=== PATIENT | male | born 1945 | race Caucasian/White ===

== ENCOUNTER 2022-08-25 14:51 | Emergency (ER) | payer OTHER, SELFPAY ==
[2022-08-25 15:03] VITALS: BP 153/77; RESP 18; TEMP 37.4; O2SAT 98; BMI 23.1
--- NOTE | 2022-08-25 15:24 | ED_ITS ---
HPI - General Adult General Chief complaint: Cough Stated complaint: Really bad cough, Trouble breathing Time Seen by Provider: 08/25/22 15:14 History of Present Illness HPI narrative: This 76-year-old male comes in with persistent dry cough that began yesterday. He states that it is worse when laying down. He had an episode of coughing where he thought he was not able to catch his breath. This was relieved when sitting upright. He does not report any fever, sore throat, or nasal congestion. He does not report shortness of breath otherwise. Related Data Previous Rx's Medication Instructions Recorded acetaminophen 300 mg-codeine 30 mg 1 tab PO Q6H PRN pain #20 tabs 08/25/22 tablet oseltamivir 75 mg capsule (Tamiflu) 75 mg PO BID 5 days #10 caps 08/25/22 Allergies Allergy/AdvReac Type Severity Reaction Status Date / Time No Known Drug Allergies Allergy Verified 08/25/22 15:07 Review of Systems Status of ROS: Reports: 10 or more systems reviewed and unremarkable except as noted in History and below Narrative: Constitutional: No fevers, no weight gain or loss. Eyes: No discharge. No vision changes. HENT: No congestion, no sore throat, no ear pain. Cardiovascular: No chest pain, no palpitations. Respiratory: No shortness of breath, no wheezes. Persistent dry cough. Gastrointestinal: No abdominal pain, no vomiting, no diarrhea. Genitourinary: No dysuria, no hematuria. Musculoskeletal: Normal range of motion. Skin: No rashes, no pruritis. Neurological: No dizziness, weakness, sensory change, speech change. Endo/Heme/Allergies: No bruising or bleeding. No polydipsia. Pysch: no suicidality, no anxiety, no insomnia. All other systems reviewed and are negative. PFSH PFS Social History Smoking Status: Never smoker Do you use any of these nicotine containing products: None How often do you have a drink containing alcohol: never AUDIT-C Alcohol total score: 0 Non-prescribed substance use: denies use Exam Narrative: Exam Narrative: Constitutional: Well-developed, well-nourished, no acute distress. HEENT: Normocephalic, atraumatic. Neck: Normal range of motion. Nontender. Supple. Heart: Regular. No murmurs. Normal rate. Intact distal pulses. Lungs: Clear to auscultation. No chest discomfort. No wheezes, rhonchi, or rales. Abdomen: Normal bowel sounds. Nontender. No rebound tenderness. Genitalia: Deferred. Back: No midline tenderness. Normal range of motion. Extremities: Normal range of motion. No injury. Skin: Intact. No rash. Warm. No erythema or pallor. Neurologic: No altered sensation. No weakness. Alert and oriented. Psychiatric: No suicidality. No anxiety or depression. No insomnia. Nursing notes and vitals signs are reviewed. Const: Vital Signs, click to edit/add: Vital Signs - 24 hr 08/25/22 15:03 Temperature 99.3 F Respiratory Rate 18 [facility] 153/77 H Pulse Oximetry 98 Oxygen Delivery Me thod Room Air Course Vital Signs Vital signs: Initial Vital Signs Temperature 99.3 F 08/25/22 15:03 Temperature Source Temporal Artery Scan 08/25/22 15:03 Respiratory Rate 18 08/25/22 15:03 Blood Pressure 153/77 H 08/25/22 15:03 Blood Pressure Mean 102 08/25/22 15:03 Blood Pressure Position Sitting 08/25/22 15:03 Pulse Oximetry 98 08/25/22 15:03 Oxygen Delivery Method 08/25/22 15:03 Vital Signs Temperature 99.3 F 08/25/22 15:03 Respiratory Rate 18 08/25/22 15:03 Blood Pressure 153/77 H 08/25/22 15:03 Pulse Oximetry 98 08/25/22 15:03 Oxygen Delivery Method 08/25/22 15:03 Temperature 99.3 F 08/25/22 15:03 Respiratory Rate 18 08/25/22 15:03 Blood Pressure 153/77 H 08/25/22 15:03 Pulse Oximetry 98 08/25/22 15:03 Oxygen Delivery Method 08/25/22 15:03 Medical Decision Making MDM Narrative Medical decision making narrative: This patient comes in with upper respiratory symptoms as described above. Testing for COVID, influenza, and RSV returned positive for influenza A. He is okay to be discharged home and received prescriptions for Tamiflu and Tylenol 3. Lab Data Labs: Lab Results 08/25/22 Range/Units 15:25 SARS-CoV-2 (PCR) Negative SARS-CoV-2 (Negative) Influenza Type A (PCR) POSITIVE PCR FLU A A (Negative) Influenza Type B (PCR) Negative PCR FLU B (Negative) RSV (PCR) Negative PCR RSV (Negative) Discharge Plan Discharge Clinical Impression: Influenza A Patient Disposition: Home, Self-Care Condition: Stable Additional Instructions: Take medication as needed and indicated. Follow up with MD or return if worsening. Prescriptions: New acetaminophen-codeine 300-30 mg tablet 1 tab PO Q6H PRN (Reason: pain) Qty: 20 0RF oseltamivir [Tamiflu] 75 mg capsule 75 mg PO BID 5 Days Qty: 10 0RF Follow Up/Referrals: Russ Thomas MD [Primary Care Provider] - Stand Alone Forms: [employer] Info Instructions
[2022-08-25 16:10] LABS: PCR FLU A POSITIVE PCR FLU A (Negative); PCR FLU B Negative PCR FLU B (Negative); PCR RSV Negative PCR RSV (Negative)
[2022-08-25 16:13] LABS: SARS PCR* Negative SARS-CoV-2 (Negative)
== END 2022-08-25 16:30 | disposition home or self-care (01) ==
PROVIDERS: Emergency Provider Emergency Medicine Emergency Medical Services; PCP Family Medicine
DX: J10.1 Influenza due to other identified influenza virus with other respiratory manifestations (principal)
CPT/HCPCS: 87502; 87634; 87635; 99283; 99284

== ENCOUNTER 2023-06-08 17:11 | Emergency (ER) | payer MEDICARE, OTHER, SELFPAY ==
[2023-06-08 17:15] VITALS: BP 110/67; PULSE 81; RESP 16; TEMP 36.4; O2SAT 96; BMI 20.5
--- NOTE | 2023-06-08 18:00 | ED.GENADULT ---
HPI - General Adult General Chief complaint: Shortness of Breath/Dyspnea Stated complaint: shortness of breath Time Seen by Provider: 06/08/23 17:37 History of Present Illness HPI narrative: tightness in chest for a couple days. c /o sob also for a couple days. daughter states says its been going on for awhile. pt said it was worse today, couldn't sit, stand or lay. 77-year-old man presenting to the emergency department complaint of shortness of breath. Further question reveals that this has been going on for months maybe even longer including some chest tightness this may be accompanied by shortness of breath maybe even some lightheadedness. Further questioning with spouse and daughter who accompanied here today reveals that with distraction or with a fan blowing in his face seems to help. Information is is frankly little difficult to obtain from [facility]. Little hard of hearing a little distracted and I think forgetful. It is not clearly orthostatic. Independent of exertion. Will occur for various amounts of time numerous times over the course of the day. Later in course of visit spouse presents a sticky note that has some medications written on it consistent with what they are already concerned about that anxiety may be part of this. Apparently consulted with a friend. Medications written up include trazodone, sertraline, Xanax. They are wondering about prescribing a longer-term medication. Does not appear to have a long-term established primary really. Related Data Home Medications Medication Instructions Recorded Confirmed No Known Home Medications 06/08/23 06/08/23 Allergies Allergy/AdvReac Type Severity Reaction Status Date / Time No Known Drug Allergies Allergy Verified 08/25/22 15:07 Review of Systems Status of ROS: Reports: 6 or more systems reviewed and unremarkable except as noted in History and below [facility] Social History Smoking Status: Never smoker Do you use any of these nicotine containing products: None How often do you have a drink containing alcohol: never AUDIT-C Alcohol total score: 0 Non-prescribed substance use: denies use Exam Narrative: Exam Narrative: Pleasant. Flatter affect. Restless. During wait in the emergency department is up and down and pacing a lot. Is in no distress otherwise. Little hard of hearing. Skin is warm and dry. Well-perfused peripherally. Moving all extremities with good strength without difficulty. There is no edema peripherally. Head is atraumatic. Cranial nerves 2-12 are intact. Neck is supple lungs are clear heart with generally regular rhythm but with some irregular beats. Distant. Abdomen is soft and nontender. Const: Vital Signs, click to edit/add: Vital Signs - 24 hr 06/08/23 17:15 Temperature 97.6 F Pulse Rate [Pulse Oximeter] 81 Respiratory Rate 16 Blood Pressure [Ri ght Upper Arm] 110/67 Pulse Oximetry 96 Oxygen Delivery Me thod Room Air Documenting provider has reviewed patient's vital signs: yes Course Vital Signs Vital signs: Initial Vital Signs Temperature 97.6 F 06/08/23 17:15 Temperature Source Temporal Artery Scan 06/08/23 17:15 Pulse Rate 81 06/08/23 17:15 Respiratory Rate 16 06/08/23 17:15 Blood Pressure 110/67 06/08/23 17:15 Blood Pressure Mean 81 06/08/23 17:15 Blood Pressure Position Sitting 06/08/23 17:15 Pulse Oximetry 96 06/08/23 17:15 Oxygen Delivery Method Room Air 06/08/23 17:15 Vital Signs Temperature 97.6 F 06/08/23 17:15 Pulse Rate 81 06/08/23 17:15 Respiratory Rate 16 06/08/23 17:15 Blood Pressure 110/67 06/08/23 17:15 Pulse Oximetry 96 06/08/23 17:15 Oxygen Delivery Method Room Air 06/08/23 17:15 Temperature 97.6 F 06/08/23 17:15 Pulse Rate 81 06/08/23 17:15 Respiratory Rate 16 06/08/23 17:15 Blood Pressure 110/67 06/08/23 17:15 Pulse Oximetry 96 06/08/23 17:15 Oxygen Delivery Method Room Air 06/08/23 17:15 Medical Decision Making MDM Narrative Medical decision making narrative: Think it is reasonable to check cardiac labs and monitor. Could be cardiovascular ischemic event that has been occurring but I think as mentioned their ability to resolve these episodes with combination of distraction and a fan suggest more of a psychogenic air hunger plus/minus anxiety. Could be a tachy arrhythmia. Was a bit of a challenge between Gwyn and his spouse to reach a conclusion about what direction they would like to go in this emergency department visit. Ultimately decided to proceed with lab work and no x-ray. This would include also evaluation for potential pulmonary embolus. I had proposed chest x-ray to evaluate mediastinum and maybe for unlikely infection or pneumothorax. I did review EKG as below. No evidence of recent cardiac event in labs. Labs overall reassuring. No events on security monitor Did with his need for pacing in apparent anxiety/agitation trial a dose of 0.5 mg of lorazepam. This did appear to settle Mr. Elder. He was seated at the bed for a while. Family thought this helpful. This may be a stop gap measure and would caution regarding use of this medication. Encouraging primary care follow-up soon. Treatment will be a little more difficult in geriatric patient and needs continuity of care. Lab Data Lab results reviewed: Yes I reviewed the patient's lab results Labs: Lab Results 06/08/23 Range/Units 19:08 D-Dimer Quant (PE/DVT) 0.30 (0.00-0.50) ug/ml Sodium 138 (135-149) mmol/L Potassium 4.5 (3.6-5.1) mmol/L Chloride 103 (96-114) mmol/L Carbon Dioxide 25 (20-32) mmol/L Anion Gap 10 (7-15) mEq/L BUN 18 (7-30) mg/dL Creatinine 0.8 (0.5-1.5) mg/dL Estimated Creat Clear 61.49 Estimated GFR 90 ml/min Glucose 120 H (60-115) mg/dL Calcium 9.9 (8.4-10.6) mg/dL Troponin I < 0.01 L (0.01-0.04) ng/mL NT-Pro-B Natriuret Pep 71 pg/mL POC Troponin I 0.00 L (0.01-0.04) ng/ml ECG Data Attestation: I personally reviewed and interpreted this ECG as follows: (Sinus rhythm. There are PACs. Right bundle branch block. I do not have prior for comparison at this time. rate of 74) Discharge Plan Discharge Clinical Impression: Anxiety, Psychogenic air hunger Patient Disposition: Home w/ Parent or Adult Condition: Stable Additional Instructions: As soon as possible please make an appointment with a regular primary care provider who can help you manage this; work this up further. I am reassured by your labs today. It does not look as though you recently had a cardiac event. You might well need a longer term ?lower dose medication as you have been saying to help you get through this. I do think it might be helpful to have a therapist as well. I have provided a stop gap medication of lorazepam. Be careful with this medication in part because it can make you tired and then potentially prone to falling. Lorazepam from [facility]. Prescriptions: No Action No Known Home Medications Follow Up/Referrals: Russ Thomas MD [Staff Physician] - Stand Alone Forms: [employer] Info Instructions
--- OUTSIDE RECORDS SUMMARY | 2023-06-08 18:41 | XMS_ITS | Patient Health Record ---
Author Name Unknown [facility] - Primary Address [address] [place] [address] [address] [place] [address] Care Team Providers [facility] Name Role Phone Different, PCP Primary Care Provider Unavailabl e ALLERGIES Allergen (clinical drug ingredient) Drug/Non Drug Allergy documented on EMR Reaction Allergy Type Onset Date Status unknown opioid (uncoded) Hallucinations Allergy Active simvastatin Zocor myopathy Drug Allergy Activ e REASON FOR REFERRAL No Information MEDICATIONS Medication SIG (Take, Route, Fr equency, Duration) Notes Start Date End Date Status atorvastatin Active rivaroxaban 20 mg 1 tab(s) orally once a day (in the evening) for 30 day(s) Activ e metoprolol 25 mg 1 tab(s) orally once a day for 30 day(s) Active atorvastatin 20 mg 1 tab(s) orally once a day for 30 day(s) Active SOCIAL HISTORY Tobacco Use: Social History Observation Description Date Details (start date - stop date) Former Smoker NA - NA Sex Assigned At : Social History Observation Description Sex Assigned At Unknown Smoking Question Answer Notes Are you a: former smoker When did you stop smoking? 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 CLAIM [address] [place] [address] [phone] [id number] Gwyn Elder Self - patient is the insured [facility] [address] [address] [place] [address] [id number] Gwyn Elder Self - patient is the insured MEDICAL (GENERAL) HISTORY Medical History History ICD Code Hyperlipidemia Chronic foot pain, neuropathic Pre-diabetes HTN Atrial fibrillation Surgical History Surgery Date(Month/Year) A-fib ablation 11/2013
[2023-06-08 19:28] LABS: Chloride* 103 mmol/L (96-114)
[2023-06-08 19:29] LABS: Potassium* 4.5 mmol/L (3.6-5.1); Sodium* 138 mmol/L (135-149)
[2023-06-08 19:31] LABS: Anion Gap 10 mEq/L (7-15); Carbon Dioxide* 25 mmol/L (20-32); Creatinine* 0.8 mg/dL (0.5-1.5); Est. Creatinine Clearance* 61.49; Estimated Glomerular Filt Rate 90 ml/min
--- NOTE | 2023-06-08 19:31 | ED.NURSE ---
Pt accompanied by family initially upset about wait in busy ER, then refused orders by MD, later agreed to bloodwork and Rx for anxiety, desired to remove vital monitoring and change to street clothes, and is pacing in room awaiting results.
[2023-06-08 19:32] LABS: Blood Urea Nitrogen* 18 mg/dL (7-30); Calcium* 9.9 mg/dL (8.4-10.6); Glucose* 120 mg/dL (60-115)
[2023-06-08 19:44] LABS: NT Pro B Type NatriureticPept* 71 pg/mL; Troponin I* < 0.01 ng/mL (0.01-0.04)
--- NOTE | 2023-06-08 20:04 | ED.NURSE ---
Pt and family with pleasant demeanor, state Pt is feeling better now and decline ativan dose in ER. Pt provided ekg and lab results, leaves ambulatory tolerating well.
== END 2023-06-08 20:13 | disposition home or self-care (01) ==
PROVIDERS: Emergency Provider Family Medicine
DX: F45.8 Other somatoform disorders (principal); F41.9 Anxiety disorder, unspecified
CPT/HCPCS: 36415; 80048; 83880; 84484; 85379; 93005; 99284

== ENCOUNTER 2023-12-13 05:44 | Emergency (ER) | payer OTHER, MEDICARE, SELFPAY ==
[2023-12-13 06:04] VITALS: BP 133/81; PULSE 66; RESP 20; TEMP 36.7; O2SAT 97; BMI 24.7
--- NOTE | 2023-12-13 06:20 | ED_ITS ---
HPI - General Adult General Chief complaint: Extremity Pain/Injury, Lower Stated complaint: pain from neuropathy Time Seen by Provider: 12/13/23 06:14 History of Present Illness HPI narrative: Patient is a 78-year-old gentleman with a history of idiopathic neuropathy. He presents with pain in his extremities which he normally treats with compression or vibration. Patient primarily sees a body and frame man think physician. He states he has not slept in 4 days due to the discomfort in his lower extremities which is confined to the toes and ankles. This is consistent with his chronic neuropathy but more intense. He has had no recent injuries. No fevers no chills no night sweats no rash. Patient has tried Tylenol Motrin other [id number] remedies with no success. He feels like he is in severe pain and is unable to rest. Related Data Home Medications Medication Instructions Recorded Confirmed mirtazapine 30 mg tablet 30 mg PO QPM 12/13/23 12/13/23 Allergies Allergy/AdvReac Type Severity Reaction Status Date / Time No Known Drug Allergies Allergy Verified 12/13/23 06:04 Review of Systems Status of ROS: Reports: 10 or more systems reviewed and unremarkable except as noted in History and below [facility] Medical History Idiopathic neuropathy ?G60.9 - Hereditary and idiopathic neuropathy, unspecified (ICD-10) Social History Smoking Status: Never smoker Do you use any of these nicotine containing products: None How often do you have a drink containing alcohol: never AUDIT-C Alcohol total score: 0 Non-prescribed substance use: denies use Exam Narrative: Exam Narrative: EXAM GENERAL: Patient appears comfortable and well. EYES: No scleral icterus. ENT: Tympanic membranes and oropharynx normal. THYROID: no thyroid nodules or thyromegaly. LYMPH: No supraclavicular or cervical lymphadenopathy. SKIN: Visible skin seen during exam normal or with benign process only. EXT: No dependent lower extremity pedal edema. HEART: Regular rate and rhythm with no murmurs, rubs, or gallops. LUNGS: Clear to auscultation bilaterally with no crackles or wheezes. ABD: Soft, non tender, non distended. PSYCH: Good eye contact, speech is not pressured. Neurologic cranial nerves 2-12 grossly intact. I am not able to identify any obvious abnormalities. Const: Vital Signs, click to edit/add: Vital Signs - 24 hr 12/13/23 06:04 Temperature 98.1 F Pulse Rate [Right Pulse Oximeter] 66 Respiratory Rate 20 Blood Pressure [Ri ght Upper Arm] 133/81 Pulse Oximetry 97 Oxygen Delivery Me thod Room Air Course Course ED Course: Patient seen and examined. Vital Signs Vital signs: Initial Vital Signs Temperature 98.1 F 12/13/23 06:04 Temperature Source Temporal Artery Scan 12/13/23 06:04 Pulse Rate 66 12/13/23 06:04 Pulse Rhythm Regular 12/13/23 06:04 Pulse Strength 3+ Normal 12/13/23 06:04 Respiratory Rate 20 12/13/23 06:04 Blood Pressure 133/81 12/13/23 06:04 Blood Pressure Mean 98 12/13/23 06:04 Blood Pressure Position Sitting 12/13/23 06:04 Pulse Oximetry 97 12/13/23 06:04 Oxygen Delivery Method Room Air 12/13/23 06:04 Vital Signs Temperature 98.1 F 12/13/23 06:04 Pulse Rate 66 12/13/23 06:04 Respiratory Rate 20 12/13/23 06:04 Blood Pressure 133/81 12/13/23 06:04 Pulse Oximetry 97 12/13/23 06:04 Oxygen Delivery Method Room Air 12/13/23 06:04 Temperature 98.1 F 12/13/23 06:04 Pulse Rate 66 12/13/23 06:04 Respiratory Rate 20 12/13/23 06:04 Blood Pressure 133/81 12/13/23 06:04 Pulse Oximetry 97 12/13/23 06:04 Oxygen Delivery Method Room Air 12/13/23 06:04 Medical Decision Making MDM Narrative Medical decision making narrative: Patient is a 78-year-old gentleman who has seen with worsening of his chronic idiopathic peripheral neuropathy. Patient primarily sees a body and frame man physician. He has not been able to get any rest for last several days using [id number] remedies and is looking for some short-term help on his neuropathic pain. His exam and vital signs are normal. This time I did elect to give him a short-term course of tramadol with close outpatient follow-up with a medical doctor. All questions were answered. Discharge Plan Discharge Clinical Impression: Neuropathy Condition: Stable Instructions: Peripheral Neuropathy (ED) Additional Instructions: Tramadol as directed Follow-up with medical doctor this coming week. Continue symptomatic care. Activity Level: No Restrictions Discharge Diet: Regular Prescriptions: No Action mirtazapine 30 mg tablet 30 mg PO QPM Follow Up/Referrals: Provider,Not a Local [Primary Care Provider] - Stand Alone Forms: [employer] Info Instructions
== END 2023-12-13 06:42 | disposition home or self-care (01) ==
LOC: ED 06:29
PROVIDERS: Emergency Provider Internal Medicine
DX: G62.9 Polyneuropathy, unspecified (principal)
CPT/HCPCS: 99283